=== PATIENT | female | born 1955 | race Caucasian/White ===

== ENCOUNTER 2017-07-28 09:01 | Outpatient (CLI) | payer OTHER ==
--- NOTE | 2017-07-28 11:59 | CT ---
CT OF CHEST PERFORMED WITHOUT CONTRAST ENHANCEMENT: HISTORY: Followup of pulmonary nodule. FINDINGS: There are parenchymal changes which have [id number] within the right middle lobe. This could repres ent atelectasis or developing pneumonia. Clinical correlation is recommended. The left lung is torres ar. The 5-6 mm pleural-based nodule seen along the anterior chest wall in the right upper lobe axia l image #26 is stable. No significant mediastinal or hilar adenopathy is appreciated. There is a small hiatal hernia noted . There are fatty changes of the liver. There is a stable appearance to a right adrenal nodule whi ch measures approximately 1.[address] Hounsfield unit numbers are in the 15-16 range, which are indeterminate. Visualized portions of the kidneys are unremarkable. IMPRESSION: 1. Stable pleural-based 5-6 right upper lobe nodule. This probably does not require any additional fracture. 2. Development of some parenchymal density in the right middle lobe consistent with atelectasis or developing infiltrate. 3. Fatty change of the liver. 4. Stable right adrenal nodule. POS: [facility]
== END 2017-07-28 09:02 | disposition home or self-care (01) ==
LOC: CT 09:01
PROVIDERS: ATTEND Internal Medicine Sleep Medicine
DX: R91.1 Solitary pulmonary nodule (principal); K76.0 Fatty (change of) liver, not elsewhere classified; E27.8 Other specified disorders of adrenal gland
CPT/HCPCS: 71250

== ENCOUNTER 2018-08-29 13:36 | Outpatient (CLI) | payer OTHER | END 2018-08-29 13:37 | disposition home or self-care (01) | LOC: BICMAMMO 13:36 | PROVIDERS: ATTEND Obstetrics & Gynecology | DX: Z12.31 Encounter for screening mammogram for malignant neoplasm of breast (principal) | CPT/HCPCS: 77063; 77067 ==

== ENCOUNTER 2018-12-19 10:12 | Outpatient (CLI) | payer OTHER ==
--- NOTE | 2018-12-19 12:38 | BD ---
Exam: DEXA Bone Density History: 63-year-old post-menopausal female for screening. Comparison: 07-13-17 Lumbar Spine: BMD (g/cm2) L1 0.670 T-Score: -2.9 L2 0.714 T-Score: -2.9 L3 0.772 T-Score: -2.8 L4 0.748 T-Score: -2.8 L1-L4 0.729 T-Score: -2.9 Femoral Neck: 0.620 T-Score: -2.1 Total Femur: 0.850 T-Score: -0.8 Impression: Osteoarthrosis. The patient an approximately 7 x increase risk for fracture when compared with young patients with normal bone mineral density. POS: [facility]
== END 2018-12-19 10:13 | disposition home or self-care (01) ==
LOC: BICMAMMO 10:12
PROVIDERS: ATTEND Internal Medicine Rheumatology
DX: M81.0 Age-related osteoporosis without current pathological fracture (principal); M19.90 Unspecified osteoarthritis, unspecified site
CPT/HCPCS: 77080

== ENCOUNTER 2019-10-09 09:07 | Outpatient (CLI) | payer MEDICARE, OTHER ==
--- NOTE | 2019-10-09 12:00 | CT ---
LOW DOSE CT SCAN OF CHEST WITHOUT IV CONTRAST FOR LUNG CANCER SCREENING: Date: 10/09/19 HISTORY: Personal tobacco use. Patient was smoker for 40+ years and quit 5 years ago. COMPARISON: 03/19/15 and 07/28/17. FINDINGS: The 5-6 mm pleural based nodule in the anterior right upper lobe is stable. No new lung nodules are s een. Mild chronic parenchymal changes are again seen. No pleural or pericardial effusions are identified. There are vascular calcifications without evidenc e of aneurysmal dilatation of the abdominal aorta. A small hiatal hernia and right adrenal adenoma ar e stable. IMPRESSION: Lung-RADS Category 2 - Benign findings. RECOMMENDATION: Follow-up LDCT recommended in 12 months. POS: [facility]
== END 2019-10-09 09:08 | disposition home or self-care (01) ==
LOC: CT 09:07
PROVIDERS: ATTEND Internal Medicine
DX: Z87.891 Personal history of nicotine dependence (principal)
CPT/HCPCS: G0297

== ENCOUNTER 2019-12-26 13:35 | Outpatient (CLI) | payer MEDICARE, OTHER ==
--- NOTE | 2019-12-26 14:41 | MMO ---
Left Breast MAMMO Unilat Diag DDI LT+KASSY. CLINICAL HISTORY: Patient is 64 years old and is seen for diagnostic exam. The patient has no family history of breast cancer. The patient has no personal history of cancer. The patient has a history of right needle biopsy in 2006 - benign. VIEWS: The views performed were: left craniocaudal with tomosynthesis; left mediolateral oblique with tomosynthesis; and left mediolateral with tomosynthesis. FILMS COMPARED: The present examination has been compared to prior imaging studies performed at [facility] on 12/11/2019, and at [facility] on 06/29/2017, 08/29/2018 and 12/26/2019. This study has been interpreted with the assistance of computer-aided detection. MAMMOGRAM FINDINGS: There are scattered fibroglandular densities. There are several round masses measuring 2 millimeters with circumscribed margins seen in the left breast. Ultrasound showed cysts and ducts. There are no suspicious masses, suspicious calcifications, or new areas of architectural distortion. IMPRESSION: THERE IS NO MAMMOGRAPHIC EVIDENCE OF MALIGNANCY. A ROUTINE FOLLOW-UP MAMMOGRAM IN 1 YEAR IS RECOMMENDED. THE RESULTS OF THIS EXAM WERE SENT TO THE PATIENT. ACR BI-RADS Category 2 - Benign finding MAMMOGRAPHY NOTE: 1. A negative mammogram report should not delay a biopsy if a dominant of clinically suspicious mass is present. 2. Approximately 10% to 15% of breast cancers are not detected by mammography. 3. Adenosis and dense breasts may obscure an underlying neoplasm. Reported by: KURT TILLEY MD Electonically Signed: [id number]
--- NOTE | 2019-12-26 15:10 | ULT ---
LEFT BREAST ULTRASOUND: HISTORY: Small nodular densities noted within the left breast on recent mammogram. COMPARISON: Outside mammograms dated 12/11/2019 and today's mammogram 12/06/2019. FINDINGS: Real-time imaging of the area of concern which in the 7 to 8 o'clock position of the left breast show s small cysts and small ducts. No suspicious masses. The largest cyst is 3 x 5 mm. IMPRESSION: BIRADS category 2 - benign findings. POS: OFF
== END 2019-12-26 13:36 | disposition home or self-care (01) ==
LOC: BICMAMMO 13:35
PROVIDERS: ATTEND Obstetrics & Gynecology
DX: N63.20 Unspecified lump in the left breast, unspecified quadrant (principal)
CPT/HCPCS: 76642; 77065; G0279

== ENCOUNTER 2020-03-06 14:27 | Outpatient (CLI) | payer MEDICARE, OTHER ==
--- NOTE | 2020-03-06 15:17 | BD ---
BONE DENSITOMETRY USING DEXA: Date: 03/06/2020 HISTORY: Osteoporosis. FINDINGS: Lumbar Spine: BMD (g/cm2) L1 0.744 T-Score: -2.2 Z-Score: -0.6 L2 0.730 T-Score: -2.7 Z-Score: -0.9 L3 0.737 T-Score: -3.2 Z-Score: -1.3 L4 0.725 T-Score: -3.1 Z-Score: -1.1 L1-L4 0.734 T-Score: -2.8 Z-Score: -1.0 Femoral Neck: 0.610 T-Score: -2.2 Z-Score: -0.6 Total Femur: 0.921 T-Score: -0.2 Z-Score: 1.1 The 10 year fracture risk for a major osteoporotic fracture is 11% and for a hip fracture is 1.7%. IMPRESSION: Osteoporosis. POS: [facility]
== END 2020-03-06 14:28 | disposition home or self-care (01) ==
LOC: BICMAMMO 14:27
PROVIDERS: ATTEND Internal Medicine Rheumatology
DX: M81.0 Age-related osteoporosis without current pathological fracture (principal)
CPT/HCPCS: 77080

== ENCOUNTER 2021-01-26 12:45 | Outpatient (CLI) | payer MEDICARE, OTHER | END 2021-01-26 12:46 | disposition home or self-care (01) | LOC: BICCT 12:45 | PROVIDERS: ATTEND Internal Medicine | DX: Z12.2 Encounter for screening for malignant neoplasm of respiratory organs (principal); J98.11 Atelectasis; J98.4 Other disorders of lung; Z87.891 Personal history of nicotine dependence | CPT/HCPCS: 71271 ==

== ENCOUNTER 2021-03-03 08:56 | Outpatient (CLI) | payer MEDICARE, OTHER | END 2021-03-03 08:57 | disposition home or self-care (01) | LOC: BICRAD 08:56 | PROVIDERS: ATTEND Internal Medicine Pulmonary Disease | DX: R06.09 Other forms of dyspnea (principal) | CPT/HCPCS: 71046 ==

== ENCOUNTER 2021-03-12 11:01 | Outpatient (CLI) | payer MEDICARE | END 2021-03-12 11:02 | disposition home or self-care (01) | LOC: BICMAMMO 11:01 | PROVIDERS: ATTEND Internal Medicine Rheumatology | DX: M81.0 Age-related osteoporosis without current pathological fracture (principal) | CPT/HCPCS: 77080 ==

== ENCOUNTER 2021-10-06 12:02 | Outpatient (CLI) | payer MEDICARE | END 2021-10-06 12:03 | disposition home or self-care (01) | LOC: BICMAMMO 12:02 | PROVIDERS: ATTEND Internal Medicine | DX: Z12.31 Encounter for screening mammogram for malignant neoplasm of breast (principal) | CPT/HCPCS: 77063; 77067 ==

== ENCOUNTER 2022-06-20 10:55 | Outpatient (CLI) | payer MEDICARE, OTHER | END 2022-06-20 10:56 | disposition home or self-care (01) | LOC: SCSMRI 10:55 | PROVIDERS: ATTEND Orthopaedic Surgery Hand Surgery | DX: S63.591A Other specified sprain of right wrist, initial encounter (principal); M48.02 Spinal stenosis, cervical region; M48.03 Spinal stenosis, cervicothoracic region; M50.31 Other cervical disc degeneration, high cervical region; M47.812 Spondylosis without myelopathy or radiculopathy, cervical region; M47.813 Spondylosis without myelopathy or radiculopathy, cervicothoracic region | CPT/HCPCS: 72141 ==

== ENCOUNTER 2022-08-02 13:23 | Outpatient (CLI) | payer MEDICARE, OTHER | END 2022-08-02 13:24 | disposition home or self-care (01) | LOC: BICMAMMO 13:23 | PROVIDERS: ATTEND Internal Medicine Rheumatology | DX: M81.0 Age-related osteoporosis without current pathological fracture (principal); M85.851 Other specified disorders of bone density and structure, right thigh | CPT/HCPCS: 77080 ==

== ENCOUNTER 2022-11-08 08:31 | Day surgery (SDC) | payer MEDICARE ==
[2022-11-07 10:18] VITALS: BMI 33.0
[2022-11-08] MEDS ORDERED: Bupivacaine PF 0.5% 30 ML VIAL ONE (10:40)
[2022-11-08] MEDS ORDERED: Bacitracin Zinc Ointment 30 gm TUBE ONE (10:40)
[2022-11-08] MEDS ORDERED: CEFAZOLIN 2 GM VIAL ONE (11:10)
[2022-11-08] MEDS ORDERED: Sodium Chloride 0.9% 100 ML ONE (11:10)
[2022-11-08] MEDS ORDERED: PROPOFOL 200 MG/20 ML VIAL ONE (11:19)
[2022-11-08] MEDS ORDERED: Lidocaine 1% PF 5 ML VIAL ONE (11:19)
[2022-11-08] MEDS ORDERED: Dexamethasone 20 MG/5 ML VIAL ONE (11:19)
[2022-11-08] MEDS ORDERED: Ketorolac Tromethamine 30 MG/ML VIAL ONE (11:19)
[2022-11-08] MEDS ORDERED: ePHEDrine 50 MG/ML VIAL ONE (11:19)
[2022-11-08] MEDS ORDERED: Ondansetron PF 4 MG/2 ML Vial ONE (11:19)
== END 2022-11-08 14:00 | disposition home or self-care (01) ==
LOC: SDC 08:31
PROVIDERS: ATTEND Orthopaedic Surgery Hand Surgery
PROC: 01N50ZZ Release Median Nerve, Open Approach (ICD-10-PCS; principal; 2022-11-08)
DX: G56.03 Carpal tunnel syndrome, bilateral upper limbs (principal); S63.591A Other specified sprain of right wrist, initial encounter; M87.037 Idiopathic aseptic necrosis of right carpus; G56.23 Lesion of ulnar nerve, bilateral upper limbs; M48.02 Spinal stenosis, cervical region; M18.11 Unilateral primary osteoarthritis of first carpometacarpal joint, right hand; G46.7 Other lacunar syndromes; I11.9 Hypertensive heart disease without heart failure; J45.909 Unspecified asthma, uncomplicated; M81.0 Age-related osteoporosis without current pathological fracture; K21.9 Gastro-esophageal reflux disease without esophagitis; Z87.891 Personal history of nicotine dependence; Z79.82 Long term (current) use of aspirin; Z79.899 Other long term (current) drug therapy
CPT/HCPCS: J1100; J1885; J2405; J2704; J3490; S0020

== ENCOUNTER 2023-09-05 13:12 | Outpatient (CLI) | payer MEDICARE | END 2023-09-05 13:13 | disposition home or self-care (01) | LOC: BICCT 13:12 | PROVIDERS: ATTEND Internal Medicine | DX: J44.9 Chronic obstructive pulmonary disease, unspecified (principal); J98.11 Atelectasis; R91.1 Solitary pulmonary nodule | CPT/HCPCS: 71250 ==

== ENCOUNTER 2023-09-06 16:13 | Outpatient (CLI) | payer MEDICARE | END 2023-09-06 16:14 | disposition home or self-care (01) | LOC: SCSRAD 16:13 | PROVIDERS: ATTEND Nurse Practitioner Family | DX: S69.91XA Unspecified injury of right wrist, hand and finger(s), initial encounter (principal) ==

== ENCOUNTER 2024-03-19 10:52 | Outpatient (CLI) | payer MEDICARE | END 2024-03-19 10:53 | disposition home or self-care (01) | LOC: SCSCT 10:52 | PROVIDERS: ATTEND Internal Medicine | DX: R91.1 Solitary pulmonary nodule (principal); J98.4 Other disorders of lung; J40 Bronchitis, not specified as acute or chronic; T17.590A Other foreign object in bronchus causing asphyxiation, initial encounter | CPT/HCPCS: 71250 ==

== ENCOUNTER 2024-10-22 10:16 | Outpatient (CLI) | payer MEDICARE | END 2024-10-22 10:17 | disposition home or self-care (01) | LOC: BICMAMMO 10:16 | PROVIDERS: ATTEND Internal Medicine Rheumatology | DX: M81.0 Age-related osteoporosis without current pathological fracture (principal); M85.851 Other specified disorders of bone density and structure, right thigh | CPT/HCPCS: 77080 ==

== ENCOUNTER 2025-07-28 15:53 | Outpatient (CLI) | payer MEDICARE | END 2025-07-28 15:54 | disposition home or self-care (01) | LOC: RAD 15:53 | PROVIDERS: ATTEND Internal Medicine | DX: R06.00 Dyspnea, unspecified (principal); J98.4 Other disorders of lung | CPT/HCPCS: 71046 ==

== ENCOUNTER 2025-08-19 14:33 | Outpatient (CLI) | payer MEDICARE | END 2025-08-19 14:34 | disposition home or self-care (01) | LOC: BICMAMMO 14:33 | PROVIDERS: ATTEND Family Medicine | DX: Z12.31 Encounter for screening mammogram for malignant neoplasm of breast (principal); Z91.89 Other specified personal risk factors, not elsewhere classified | CPT/HCPCS: 77063; 77067 ==

== ENCOUNTER 2025-09-10 11:14 | Outpatient (CLI) | payer MEDICARE | END 2025-09-10 11:15 | disposition home or self-care (01) | LOC: SCSRAD 11:14 | PROVIDERS: ATTEND Nurse Practitioner Family | DX: S49.91XA Unspecified injury of right shoulder and upper arm, initial encounter (principal); M19.011 Primary osteoarthritis, right shoulder ==